=== PATIENT | female | born 1945 | race Caucasian/White ===

== ENCOUNTER 2018-11-15 05:35 | Inpatient (IN) ==
[2018-10-31 09:42] LABS: Basophils # 0.1 10*3/uL (0.0-0.2); Basophils % 0.6 % (0.0-0.8); Eosinophils # 0.3 10*3/uL (0.0-0.87); Eosinophils % 3.4 % (0.00-10.9); Hematocrit 37.7 VOL% (35.7-47.0); Hemoglobin 11.8 GM/DL (12.0-16.0); Immature Granulocytes % 0.6 %; Immature Granulocytes Absolute 0.05 #; Lymphocytes # 2.1 10*3/uL (1.4-4.0); Lymphocytes % 23.8 % (21.3-54.2); Mean Corpuscular HGB Conc 31.3 GM/DL (32-36); Mean Corpuscular Hemoglobin 28 PG (27-34); Mean Corpuscular Volume 89.5 FL (87-102); Mean Platelet Volume 11.1 FL (9.6-12.0); Monocytes # 0.8 10*3/uL (0.11-0.8); Monocytes % 8.5 % (1.7-12.7); Neutrophils # 5.5 10*3/uL (1.4-7.4); Neutrophils % 63.1 % (38.7-73.9); Platelet Count 342 T/CUMM (130-400); Red Blood Count 4.21 MC/CUMM (3.8-5.5); Red Cell Distribution Width 13.4 % (9.3-17.3); White Blood Count 8.8 T/CUMM (4-12)
[2018-10-31 09:48] LABS: Apearance,Urine CLEAR (Clear); Bacteria,Urine Occasional /HPF (Few); Bilirubin,Urine Negative (Negative); Blood, Urine Negative (Negative); Glucose,Urine (UA) 50 mg/dL (Negative); Ketones,Urine 5 mg/dL (Negative); Nitrite,Urine Negative (Negative); Protein,Urine Negative; RBC,Urine 3 /HPF (0-4); Squamous Epithelial Cell,Urine Occasional /HPF (0-10); Urine Color Yellow (Yellow); Urine Specific Gravity > 1.060 (1.001-1.035); Urine Urobilinogen < 2.0 EU/DL (0.2-1.0); WBC,Urine 5 /HPF (0-6)
[2018-10-31 10:05] LABS: Calcium 8.9 MG/DL (8.5-10.1); Osmolality,Calculated 272.5 MOS/KG (273-304); Potassium 4.8 MMOL/L (3.5-5.1)
[2018-11-15] MEDS ORDERED: ALVIMOPAN 12 MG CAPSULE PO ONE (06:00)
[2018-11-15] MEDS ORDERED: cefTRIAXone 1,000 MG in SYRINGE 1 EACH IV ONE (06:00)
[2018-11-15] MEDS ORDERED: FAMOTIDINE 20 MG TABLET PO ONE (06:00)
[2018-11-15] MEDS ORDERED: DIAZEPAM 5 MG TABLET PO ONE (06:00)
[2018-11-15] MEDS ORDERED: MANNITOL 12.5 GM/50 ML VIAL IV ONE (06:29)
[2018-11-15] MEDS ORDERED: ALVIMOPAN 12 MG CAPSULE ONE (06:33)
[2018-11-15] MEDS ORDERED: cefTRIAXone 1,000 MG VIAL ONE (06:33)
[2018-11-15] MEDS ORDERED: FAMOTIDINE 20 MG TABLET ONE (06:33)
[2018-11-15] MEDS ORDERED: INDOCYANINE GREEN 25 MG VIAL IV ONE (06:33)
[2018-11-15] MEDS ORDERED: DIAZEPAM 5 MG TABLET ONE (06:33)
[2018-11-15] MEDS ORDERED: LACTATED RINGERS 1,000 ML IV SCH (07:00)
[2018-11-15] MEDS ORDERED: HYDROmorphone PCA 30 MG/30 ML SYRINGE IV SCH (09:00)
[2018-11-15] MEDS ORDERED: NALOXONE 0.4 MG/ML VIAL IV PRN (09:00)
[2018-11-15] MEDS ORDERED: ALBUMIN 5% 12.5 GM/250 ML VIAL IV ONE (10:05)
[2018-11-15] MEDS ORDERED: ONDANSETRON 4 MG/2 ML VIAL IV PRN (11:20)
[2018-11-15] MEDS ORDERED: diphenhydrAMINE 50 MG/1 ML VIAL IV PRN (11:20)
[2018-11-15 11:26] LABS: Apearance,Urine CLEAR (Clear); Bilirubin,Urine Negative (Negative); Blood, Urine Negative (Negative); Glucose,Urine (UA) 50 mg/dL (Negative); Ketones,Urine Negative (Negative); Mucus,Urine Occasional /LPF (Occasional); Nitrite,Urine Negative (Negative); Protein,Urine Negative; RBC,Urine <1 /HPF (0-4); Urine Color Yellow (Yellow); Urine Specific Gravity 1.011 (1.001-1.035); Urine Urobilinogen < 2.0 EU/DL (0.2-1.0); WBC,Urine <1 /HPF (0-6)
[2018-11-15] MEDS ORDERED: fentaNYL 100 MCG/2 ML VIAL ONE (11:42)
[2018-11-15] MEDS ORDERED: PROPOFOL 200 MG/20 ML VIAL IV ONE (11:42)
[2018-11-15] MEDS ORDERED: SEVOFLURANE 1 UNIT/15 MINUTE INH ONE (11:42)
[2018-11-15] MEDS ORDERED: ESMOLOL 100 MG/10 ML VIAL IV ONE (11:43)
[2018-11-15] MEDS ORDERED: NEOSTIGMINE 10 MG/10 ML VIAL ONE (11:43)
[2018-11-15] MEDS ORDERED: ONDANSETRON 4 MG/2 ML VIAL ONE (11:43)
[2018-11-15] MEDS ORDERED: GLYCOPYRROLATE 0.4 MG/2 ML VIAL ONE (11:43)
[2018-11-15] MEDS ORDERED: ACETAMINOPHEN 1,000 MG/100 ML VIAL IV ONE (11:43)
[2018-11-15] MEDS ORDERED: MIDAZOLAM 2 MG/2 ML VIAL ONE (11:43)
[2018-11-15] MEDS ORDERED: LACTATED RINGERS 2,000 ML IV ONE (11:43)
[2018-11-15] MEDS ORDERED: ROCURONIUM 100 MG/10 ML VIAL IV ONE (11:43)
[2018-11-15] MEDS ORDERED: PHENYLEPHRINE 1 MG/10 ML SYRINGE IV ONE (11:43)
[2018-11-15] MEDS ORDERED: INSULIN REGULAR 100 UNIT/ML ONE (12:04)
[2018-11-15] MEDS ORDERED: INSULIN REGULAR 100 UNIT/ML SUBCUT ONE (12:05)
[2018-11-15] MEDS: SODIUM CHLORIDE 0.9% 1,000 ML IV SCH (12:53)
[2018-11-15] MEDS: HydrOXYzine PAMOATE 25 MG CAPSULE PO SCH (20:25)
[2018-11-15] MEDS: ALVIMOPAN 12 MG CAPSULE PO SCH (20:25)
[2018-11-15] MEDS: metFORMIN 500 MG TABLET PO SCH (20:25)
[2018-11-15] MEDS: MELATONIN 3 MG TABLET PO SCH (20:25)
[2018-11-16] MEDS: SODIUM CHLORIDE 0.9% 1,000 ML IV SCH ×2 (04:49→19:32)
[2018-11-16 05:31] LABS: Basophils % 0.2 % (0.0-0.8); Eosinophils % 0.1 % (0.00-10.9); Hematocrit 31.8 VOL% (35.7-47.0); Hemoglobin 9.8 GM/DL (12.0-16.0); Immature Granulocytes % 0.5 %; Immature Granulocytes Absolute 0.04 #; Mean Corpuscular HGB Conc 30.8 GM/DL (32-36); Mean Corpuscular Hemoglobin 28 PG (27-34); Mean Corpuscular Volume 91.6 FL (87-102); Mean Platelet Volume 11.5 FL (9.6-12.0); Monocytes # 0.8 10*3/uL (0.11-0.8); Monocytes % 9.1 % (1.7-12.7); Neutrophils # 6.9 10*3/uL (1.4-7.4); Neutrophils % 79.1 % (38.7-73.9); Platelet Count 261 T/CUMM (130-400); Red Blood Count 3.47 MC/CUMM (3.8-5.5); Red Cell Distribution Width 13.3 % (9.3-17.3); White Blood Count 8.7 T/CUMM (4-12)
[2018-11-16 05:39] LABS: Osmolality,Calculated 286.7 MOS/KG (273-304); Potassium 5.1 MMOL/L (3.5-5.1)
[2018-11-16] MEDS ORDERED: MEPERIDINE 50 MG/1 ML VIAL IM PRN (08:50)
[2018-11-16] MEDS ORDERED: oxyCODONE/ACETAMINOPHEN 5-325 MG TABLET PO PRN (08:55)
[2018-11-16] MEDS: LISINOPRIL 20 MG TABLET PO SCH (08:55)
[2018-11-16] MEDS: ALVIMOPAN 12 MG CAPSULE PO SCH ×2 (08:56→21:00)
[2018-11-16] MEDS: FENOFIBRATE 160 MG TABLET PO SCH (08:56)
[2018-11-16] MEDS: HydrOXYzine PAMOATE 25 MG CAPSULE PO SCH ×2 (08:56→21:00)
[2018-11-16] MEDS: ATORVASTATIN 20 MG TABLET PO SCH (08:56)
[2018-11-16] MEDS: PYRIDOXINE 100 MG TABLET PO SCH (08:56)
[2018-11-16] MEDS: metFORMIN 500 MG TABLET PO SCH ×2 (09:06→21:00)
[2018-11-16] MEDS: oxyCODONE/ACETAMINOPHEN 5-325 MG TABLET PO PRN ×2 (10:28→23:59)
[2018-11-16] MEDS: MELATONIN 3 MG TABLET PO SCH (21:00)
[2018-11-16] MEDS ORDERED: ASPIRIN 325 MG TABLET ONE (23:50)
[2018-11-16] MEDS ORDERED: NITROGLYCERIN SL 0.4 MG TABLET SL ONE (23:51)
[2018-11-17] MEDS: SODIUM CHLORIDE 0.9% 1,000 ML IV SCH ×2 (03:54→10:16)
[2018-11-17] MEDS: PYRIDOXINE 100 MG TABLET PO SCH (08:40)
[2018-11-17] MEDS: ALVIMOPAN 12 MG CAPSULE PO SCH ×2 (08:40→20:25)
[2018-11-17] MEDS: LISINOPRIL 20 MG TABLET PO SCH (08:40)
[2018-11-17] MEDS: FENOFIBRATE 160 MG TABLET PO SCH (08:40)
[2018-11-17] MEDS: metFORMIN 500 MG TABLET PO SCH ×2 (08:40→20:26)
[2018-11-17] MEDS: HydrOXYzine PAMOATE 25 MG CAPSULE PO SCH ×2 (09:00→20:25)
[2018-11-17] MEDS ORDERED: LACTULOSE 20 GM/30 ML UDCUP PO PRN (11:38)
[2018-11-17] MEDS ORDERED: BISACODYL 10 MG SUPP RECTAL PRN (11:41)
[2018-11-17] MEDS: ATORVASTATIN 20 MG TABLET PO SCH (17:41)
[2018-11-17] MEDS: MELATONIN 3 MG TABLET PO SCH (20:26)
[2018-11-18 07:48] VITALS: BP 146/79
[2018-11-18] MEDS ORDERED: sitaGLIPtin 100 MG TABLET PO SCH (09:00)
[2018-11-18] MEDS ORDERED: MULTIVITAMIN (OCUVITE) TABLET PO SCH (09:00)
[2018-11-18] MEDS: ATORVASTATIN 20 MG TABLET PO SCH (09:43)
[2018-11-18] MEDS: LISINOPRIL 20 MG TABLET PO SCH (09:43)
[2018-11-18] MEDS: ALVIMOPAN 12 MG CAPSULE PO SCH (09:43)
[2018-11-18] MEDS: FENOFIBRATE 160 MG TABLET PO SCH (09:43)
[2018-11-18] MEDS: metFORMIN 500 MG TABLET PO SCH (09:43)
[2018-11-18] MEDS: PYRIDOXINE 100 MG TABLET PO SCH (09:43)
[2018-11-18] MEDS: HydrOXYzine PAMOATE 25 MG CAPSULE PO SCH (09:44)
== END 2018-11-18 10:56 | disposition home health service (06) | DRG 658 ==
LOC: N.OR 05:35 → N.SDSINP 05:37 → N.5E 09:53
PROVIDERS: ADMIT Urology; ATTEND Urology